=== PATIENT | female | born 1965 | race Caucasian/White ===

== ENCOUNTER → 2016-06-10 18:34 | Outpatient (CLI) | payer BC ==
[2009-08-09 09:07] VITALS: BMI 19.3
== END | disposition home or self-care (01) ==
LOC: D.MAMMO 13:15
DX: Z12.31 Encounter for screening mammogram for malignant neoplasm of breast (principal)

== ENCOUNTER → 2017-06-13 16:46 | Outpatient (CLI) | payer BC ==
[2009-08-09 09:07] VITALS: BMI 19.3
== END | disposition home or self-care (01) ==
LOC: D.MAMMO 10:45
DX: Z12.31 Encounter for screening mammogram for malignant neoplasm of breast (principal)

== ENCOUNTER → 2017-12-05 14:49 | Outpatient (CLI) | payer BC ==
[2009-08-09 09:07] VITALS: BMI 19.3
== END | disposition home or self-care (01) ==
LOC: D.MRI 14:49
DX: M75.100 Unspecified rotator cuff tear or rupture of unspecified shoulder, not specified as traumatic (principal)

== ENCOUNTER → 2017-12-18 15:46 | Outpatient (CLI) | payer BC ==
[2009-08-09 09:07] VITALS: BMI 19.3
== END | disposition home or self-care (01) ==
LOC: D.RAD 15:46
DX: M25.512 Pain in left shoulder (principal)